=== PATIENT | male | born 2000 | race Two or more races ===

== ENCOUNTER 2022-12-11 00:41 | Emergency (ER) | payer MEDICAID ==
[~2022-12-11] VITALS: Ht 177.8 cm; Wt 72.4 kg
[~2022-12-11 00:41] MED LIST: NORPTMEDS CO
[2022-12-11 01:29] VITALS: BP 127/63
[2022-12-11] MEDS ORDERED: HYDR-4902 PO (01:53)
[2022-12-11] MEDS ORDERED: AMOX-277 PO (01:53)
[2022-12-11] MEDS ORDERED: ONDA-144 PO (01:53)
[2022-12-11] MEDS ORDERED: HYDROcodone-ACET 5/325MG TAB PO ONE (02:00)
[2022-12-11] MEDS ORDERED: ONDANSETRON ODT 4 MG TAB PO ONE (02:00)
== END 2022-12-11 02:10 | disposition home or self-care (01) ==
LOC: ER 00:41
DX: K04.7 Periapical abscess without sinus (principal); Z88.1 Allergy status to other antibiotic agents
CPT/HCPCS: 99283; Q0162